=== PATIENT | female | born 1955 | race Caucasian/White ===

== ENCOUNTER 2016-11-20 00:48 | Observation (INO) | payer MEDICAID ==
[~2016-11-20] VITALS: Ht 165.1 cm; Wt 57.7 kg
[2016-11-20] VITALS (8 sets, daily range): BP systolic 121–175; RESP 15–18; TEMP 97.9–98.1; Ht 165.1 cm; Wt 57.7 kg
[2016-11-20] MEDS ORDERED: METOPROLOL 5 MG/5 ML VIAL IV ONE (02:58)
[2016-11-20] MEDS ORDERED: SODIUM CHLORIDE 0.9% 1,000 ML IV SCH (04:10)
[2016-11-20] MEDS ORDERED: DOCUSATE SOD 100 MG CAP PO PRN (04:10)
[2016-11-20] MEDS ORDERED: TEMAZEPAM 15 MG CAP PO PRN (04:10)
[2016-11-20] MEDS ORDERED: NITROGLYCERIN SL 0.4 MG TAB SL PRN (04:10)
[2016-11-20] MEDS ORDERED: SODIUM CHLORIDE 0.9% FLUSH BAG 500 ML IV PRN (04:10)
[2016-11-20] MEDS ORDERED: LORAZEPAM 0.5 MG TAB PO PRN (04:10)
[2016-11-20] MEDS ORDERED: TRAMADOL 50 MG TAB PO PRN (04:10)
[2016-11-20] MEDS ORDERED: SALINE FLUSH 10 ML FLUSH PRN (04:10)
[2016-11-20] MEDS ORDERED: MORPHINE 2 MG/ML SYR IV PRN (04:10)
[2016-11-20] MEDS ORDERED: NITROGLYCERIN 50 MG/250 ML IV PRN (04:10)
[2016-11-20] MEDS ORDERED: ONDANSETRON 4 MG VIAL IV PRN (04:10)
[2016-11-20] MEDS ORDERED: ACETAMINOPHEN 325 MG TAB PO PRN (04:15)
[2016-11-20] MEDS ORDERED: SALINE FLUSH 10 ML FLUSH SCH (08:00)
[2016-11-20] MEDS ORDERED: ASPIRIN EC 81 MG TAB PO SCH (08:00)
== END 2016-11-20 17:05 | disposition home or self-care (01) ==
LOC: ENRESERVTM → ENRESERV → ENRESERVDT → ER 00:48 → ENPENDDIS 02:47 → EMR 02:47 → 5THW 04:14
PROVIDERS: ADMIT Internal Medicine Cardiovascular Disease; ATTEND Internal Medicine Cardiovascular Disease
CPT/HCPCS: 36415; 71010; 80053; 80061; 82553; 83735; 83880; 84484; 85025; 85610; 85730; 93005; 94799; 96374